=== PATIENT | female | born 2000 | race Two or more races ===

== ENCOUNTER 2022-06-08 07:17 | Outpatient (CLI) | payer OTHER | END 2022-06-08 07:20 | disposition home or self-care (01) | LOC: NUCLEAR 07:17 | PROVIDERS: ATTEND Internal Medicine Endocrinology, Diabetes & Metabolism | DX: E05.90 Thyrotoxicosis, unspecified without thyrotoxic crisis or storm (principal) | CPT/HCPCS: 78014; A9512 ==

== ENCOUNTER 2022-06-09 07:24 | Outpatient (CLI) | payer OTHER | END 2022-06-09 07:25 | disposition home or self-care (01) | LOC: NUCLEAR 07:24 | PROVIDERS: ATTEND Internal Medicine Endocrinology, Diabetes & Metabolism | DX: E05.90 Thyrotoxicosis, unspecified without thyrotoxic crisis or storm (principal) | CPT/HCPCS: 78014; A9539 ==

== ENCOUNTER 2023-01-15 08:43 | Emergency (ER) | payer OTHER ==
[~2023-01-15] VITALS: Ht 160 cm; Wt 67.1 kg
[2023-01-15] MEDS ORDERED: TAPAZOLE5 MG (09:01)
[2023-01-15] MEDS ORDERED: PEPCID AC20 MG PO (12:59)
== END 2023-01-15 13:08 | disposition home or self-care (01) ==
LOC: ER 08:43
DX: R10.13 Epigastric pain (principal); K52.89 Other specified noninfective gastroenteritis and colitis; Z91.041 Radiographic dye allergy status; Z20.822 Contact with and (suspected) exposure to COVID-19